=== PATIENT | male | born 1990 | race Caucasian/White ===

== ENCOUNTER 2016-09-29 15:35 | Emergency (ER) | payer BC, OTHER ==
[~2016-09-29] VITALS: Ht 182.9 cm; Wt 67.4 kg
[2016-09-29] MEDS ORDERED: SODIUM CHLORIDE 0.9% 1000ML 2,000 ML IV STA (16:19)
[2016-09-29] MEDS ORDERED: KETOROLAC TROMETHAMINE 15 MG/ML VIAL IM STA (16:19)
[2016-09-29] MEDS ORDERED: KETOROLAC TROMETHAMINE 30 MG/ML VIAL ONE (16:46)
--- NOTE | 2016-09-29 16:46 | EMERGENCY ROOM VISIT NOTE ---
History First contact with patient: 16:03 Chief Complaint: ILLNESS Stated Complaint: RASH, HARPER, BACK,NECK,JOINT LEG PAIN, LIGHTHEADED History of Present Illness The patient is a 26 year old male who presents to the Emergency Room with complaints of 5 days of back and leg pain, joint pain, headaches, fevers and chills. Yesterday patient noticed a round red rash in his right armpit, nontender, non-itchy, no drainage. Patient has been taking DayQuil/NyQuil for his symptoms, had DayQuil one hour prior to arrival today. Patient states he regularly spends time outdoors, denies any recent known tick exposure, but reports this in the past especially during hunting season, noting "one time I took over 35 ticks off of me." He denies chest pain, shortness of breath, cough , nausea/vomiting, abdominal pain, diarrhea, urinary complaints. Review of Systems GENERAL: + fevers, chills, malaise, fatigue. Denies unintentional weight changes. HEENT: + Dizziness. Denies visual problems, hearing loss, tinnitus. Denies difficulty swallowing or oral lesions. PULMONARY: Denies cough, shortness of breath, sputum production or hemoptysis. CARDIOVASCULAR: Denies chest pain, palpitations, dyspnea on exertion, orthopnea or peripheral edema. GASTROINTESTINAL: Denies diarrhea, constipation, nausea, vomiting, or abdominal pain. GENITOURINARY: Denies dysuria, frequency, urgency or nocturia. + Decreased urine output, dark urine. NEUROLOGIC: Denies history of epilepsy, CVA, TIA or chronic headaches. + Headache. MUSCULOSKELETAL: + Bilateral Joint pain. SKIN: + Rash right axilla. PSYCHIATRIC: Denies history of depression or mental illness. ENDOCRINE: Denies history of diabetes, thyroid disorders, abnormal hair growth or sexual dysfunction. Social History Smoking Status: Current Every Day Smoker Current/Historical Medications Scheduled Doxycycline Hyclate (Doxycycline Hyclate), 1 TAB PO BID Allergies Coded Allergies: Cefadroxil (Verified Allergy, Unknown, ., 09/29/16) Physical Exam Vital Signs Date Time Temp Pulse Resp B/P Pulse Ox O2 Delivery O2 Flow Rate FiO2 09/29/16 19:45 93 16 131/80 100 09/29/16 18:45 37.4 92 18 133/76 100 Room Air 09/29/16 17:25 88 09/29/16 17:20 100 Room Air 09/29/16 17:20 80 16 120/72 100 Room Air 09/29/16 15:49 37.6 96 16 121/72 98 Room Air Physical Exam CONSTITUTIONAL: No acute distress. Moderately dehydrated. Alert and oriented X 4 with normal affect. HEENT: Normocephalic, atraumatic. Pupils equal, round and reactive to light, EOMI. No papilledema on funduscopic exam. TMs normal. Pharynx normal. Dry mucous membranes NECK: Supple, full active range of motion without discomfort. No meningismus. RESPIRATORY: Clear to auscultation bilaterally with no wheezing, crackles, rhonchi or stridor. Equal expansion bilaterally. CARDIOVASCULAR: Regular rate and rhythm with no murmurs, rubs or gallops. Normal peripheral perfusion. No edema. GASTROINTESTINAL: Soft, nontender, nondistended. Bowel sounds present in all quadrants. MUSCULOSKELETAL: Full range of motion of all joints without discomfort. No joint swelling noted. INTEGUMENTARY: There is a large round erythematous rash in the right axilla, blanching, nontender to palpation, not hot to touch. NEUROLOGIC: Cranial nerves II-XII grossly intact. No focal neurologic deficits noted. No papilledema noted on ophthalmologic exam. Normal strength, normal sensation, normal cerebellar function, normal gait, normal reflexes. Medical Decision & Procedures ER Provider Diagnostic Interpretation: CHEST 2 VIEWS ROUTINE HISTORY: fevers x 5 days, eval pna COMPARISON: Chest 06/04/2014. FINDINGS: The lungs are clear. Cardiac silhouette is normal in size. No pleural effusions. No pneumothorax. IMPRESSION: No acute process. Laboratory Results 09/29/16 16:47 Red Blood Count 4.45, Mean Corpuscular Volume 88.5, Mean Corpuscular Hemoglobin 30.6, Mean Corpuscular Hemoglobin Concent 34.5, Mean Platelet Volume 9.5, Neutrophils (%) (Auto) 74.0, Lymphocytes (%) (Auto) 16.2, Monocytes (%) (Auto) 9.2, Eosinophils (%) (Auto) 0.2, Basophils (%) (Auto) 0.2, Neutrophils # (Auto) 4.76, Lymphocytes # (Auto) 1.04, Monocytes # (Auto) 0.59, Eosinophils # (Auto) 0.01, Basophils # (Auto) 0.01 09/29/16 16:47 Test 09/29/16 16:47 09/29/16 17:20 White Blood Count 6.42 K/uL (4.8-10.8) Red Blood Count 4.45 M/uL (4.7-6.1) Hemoglobin 13.6 g/dL (14.0-18.0) Hematocrit 39.4 % (42-52) Mean Corpuscular Volume 88.5 fL (80-100) Mean Corpuscular Hemoglobin 30.6 pg (25-34) Mean Corpuscular Hemoglobin Concent 34.5 g/dl (32-36) Platelet Count 197 K/uL (130-400) Mean Platelet Volume 9.5 fL (7.4-10.4) Neutrophils (%) (Auto) 74.0 % Lymphocytes (%) (Auto) 16.2 % Monocytes (%) (Auto) 9.2 % Eosinophils (%) (Auto) 0.2 % Basophils (%) (Auto) 0.2 % Neutrophils # (Auto) 4.76 K/uL (1.4-6.5) Lymphocytes # (Auto) 1.04 K/uL (1.2-3.4) Monocytes # (Auto) 0.59 K/uL (0.11-0.59) Eosinophils # (Auto) 0.01 K/uL (0-0.5) Basophils # (Auto) 0.01 K/uL (0-0.2) RDW Standard Deviation 43.2 fL (36.4-46.3) RDW Coefficient of Variation 13.2 % (11.5-14.5) Immature Granulocyte % (Auto) 0.2 % Immature Granulocyte # (Auto) 0.01 K/uL (0.00-0.02) Anion Gap 7.0 mmol/L (3-11) Est Creatinine Clear Calc Drug Dose 107.7 ml/min Estimated GFR () 120.7 Estimated GFR (Non- 104.1 BUN/Creatinine Ratio 8.5 (10-20) Lactic Acid Level 0.8 mmol/L (0.4-2.0) Calcium Level 8.8 mg/dl (8.5-10.1) Total Bilirubin 0.3 mg/dl (0.2-1) Direct Bilirubin 0.2 mg/dl (0-0.2) Aspartate Amino Transf (AST/SGOT) 171 U/L (15-37) Alanine Aminotransferase (ALT/SGPT) 243 U/L (12-78) Alkaline Phosphatase 146 U/L (45-117) Total Creatine Kinase 126 U/L (39-308) C-Reactive Protein 13.20 mg/dl (0-0.29) Total Protein 7.5 gm/dl (6.4-8.2) Albumin 3.7 gm/dl (3.4-5.0) Lipase 179 U/L (73-393) Lyme Disease IgG Antibody NEG (NEG) Urine Color YELLOW Urine Appearance CLEAR (CLEAR) Urine pH 7.0 (4.5-7.5) Urine Specific [place] 1.009 (1.000-1.030) Urine Protein NEG (NEG) Urine Glucose (UA) NEG (NEG) Urine Ketones 1+ (NEG) Urine Occult Blood NEG (NEG) Urine Nitrite NEG (NEG) Urine Bilirubin NEG (NEG) Urine Urobilinogen NEG (NEG) Urine Leukocyte Esterase NEG (NEG) Urine WBC (Auto) 0 /hpf (0-5) Urine RBC (Auto) 0-4 /hpf (0-4) Urine Hyaline Casts (Auto) 0 /lpf (0-5) Urine Epithelial Cells (Auto) 5-10 /lpf (0-5) Urine Bacteria (Auto) NEG (NEG) Medications Administered Medications (Trade) Dose Ordered Sig/Charles Route Start Time Stop Time Status Last Admin Dose Admin Sodium Chloride (Nss 1000ml) 2,000 ml @ 999 mls/hr Q2H1M STAT IV 09/29/16 16:19 09/29/16 19:18 DC 09/29/16 17:18 999 MLS/HR Ketorolac Tromethamine (Toradol Inj) 30 mg STK-MED ONCE .ROUTE 09/29/16 16:46 09/29/16 16:47 DC 09/29/16 17:17 15 MG Acetaminophen/ Hydrocodone Bitart ([place] 5/325 Tab) 1 tab NOW STAT PO 09/29/16 19:06 09/29/16 19:08 DC 09/29/16 19:19 1 TAB Doxycycline Hyclate (Vibramycin Cap) 100 mg NOW STAT PO 09/29/16 19:11 09/29/16 19:13 DC 09/29/16 19:19 100 MG Medical Decision CC: Patient presenting with complaint of headaches, body aches, joint pain, fevers and chills for 5 days. Interpretation of Labs: No leukocytosis, no anemia, no significant electrolyte abnormalities, normal renal function, diffuse mildly elevated liver enzymes. Positive Lyme. Differential Diagnosis: Includes, but not limited to viral illness, dehydration , electrolyte abnormality, acute Lyme disease, rhabdomyolysis, viral meningitis. Summary: Patient was evaluated at bedside, history of physical exam performed. Patient is alert and oriented, no acute distress. Neurologic exam is normal without focal deficit. No clinical meningismus on exam, I have a low suspicion for meningitis. Patient has erythematous target lesion in the right axilla that appears consistent with Lyme disease. Orders were placed at bedside for labs, urinalysis, chest x-ray, IV fluid bolus to evaluate for dehydration, Lyme disease, other infectious etiology. Patient discussed with Dr. Adames, who agrees with my assessment and plan. Chest x-ray reviewed and is normal, no pneumonia. Labs reviewed, interpretation as above, notable for positive Lyme disease. First dose of doxycycline given in ED. Patient tolerating PO well. Patient reassessed multiple times throughout ED stay, greatly improved after IV fluids and medications. Patient and family updated on all results and plan for discharge, with close follow-up. Patient also given return precautions, he verbalized understanding. Impression Primary Impression: Acute Lyme disease Departure Information Dispostion Home / Self-Care Condition GOOD Prescriptions Doxycycline Hyclate (DOXYCYCLINE HYCLATE) 100 Mg Tab 1 TAB PO BID for 21 Days, #42 TAB Prov: Lani Cano CRNP 09/29/16 Referrals No Doctor, Assigned (PCP) Patient Instructions ED Lyme Disease, [facility] Additional Instructions Take the doxycycline as prescribed for the full 21 days to treat your Lyme disease. You may take Tylenol 1000 mg every 8 hours and ibuprofen 800 mg every 8 hours as needed for headaches and headaches. Drink plenty of fluids to stay hydrated. Follow-up with your primary doctor in the next few days. Please return to the ER for worsening symptoms, including severe worsening headache, persistent vomiting and unable to keep anything down, chest pain, shortness of breath, passing out, persistent fevers greater than 101, chills, or any other concerns.
[2016-09-29 16:48] VITALS: Ht 182.9 cm; Wt 67.4 kg
[2016-09-29 17:14] LABS: BASO % 0.2 %; BASO ABS # 0.01 K/uL (0-0.2); COMPLETE YES; EOS % 0.2 %; HEMATOCRIT 39.4 % (42-52); IG% 0.2 %; LYMPH % 16.2 %; LYMPH ABS # 1.04 K/uL (1.2-3.4); MEAN CELL VOLUME 88.5 fL (80-100); MEAN CORPUSCULAR HEMOGLOBIN 30.6 pg (25-34); MEAN CORPUSCULAR HGB CONC 34.5 g/dl (32-36); MEAN PLATELET VOLUME 9.5 fL (7.4-10.4); MONO % 9.2 %; PLATELET COUNT 197 K/uL (130-400); RED BLOOD COUNT 4.45 M/uL (4.7-6.1); WHITE BLOOD COUNT 6.42 K/uL (4.8-10.8)
[2016-09-29 17:20] VITALS: O2SAT 100
[2016-09-29 17:34] LABS: BUN/CREATININE RATIO 8.5 (10-20); C-REACTIVE PROTEIN 13.2 mg/dl (0-0.29); CALCIUM 8.8 mg/dl (8.5-10.1); POTASSIUM 3.6 mmol/L (3.5-5.1)
[2016-09-29 17:34] LABS: URINE APPEARANCE CLEAR (CLEAR); URINE BILIRUBIN NEG (NEG); URINE COLOR YELLOW; URINE NITRITE NEG (NEG); URINE SPECIFIC GRAVITY 1.009 (1.000-1.030); UROBILINOGEN NEG (NEG)
[2016-09-29 17:37] LABS: MANUAL MICROSCOPIC REQUIRED? NO; REVIEW REQ? YES
--- NOTE | 2016-09-29 18:03 | DIAGNOSTIC IMAGING REPORT ---
CHEST 2 VIEWS ROUTINE HISTORY: fevers x 5 days, eval pna COMPARISON: Chest 06/04/2014. FINDINGS: The lungs are clear. Cardiac silhouette is normal in size. No pleural effusions. No pneumothorax. IMPRESSION: No acute process. Electronically signed by: Malcolm Marcano M.D. 09/29/2016 6:02 PM Dictated Date/Time: 09/29/2016 6:01 PM
[2016-09-29 18:33] LABS: LYME DISEASE AB IGG NEG (NEG)
[2016-09-29 18:45] VITALS: TEMP 37.4
[2016-09-29 18:49] LABS: LYME DISEASE AB IGM POS (NEG)
[2016-09-29] MEDS ORDERED: SODIUM CHLORIDE 0.9% 1000ML 1,000 ML IV STA (19:02)
[2016-09-29] MEDS ORDERED: HYDROCODONE/ACETAMOPHEN 5/325MG TAB PO STA (19:06)
[2016-09-29] MEDS ORDERED: DOXYCYCLINE HYCLATE 100 MG CAP PO STA (19:11)
[2016-09-29] MEDS ORDERED: DOXY1TAB6 PO (19:16)
[2016-09-29 19:45] VITALS: BP 131/80; PULSE 93; O2SAT 100
[2016-10-04 20:33] LABS: 18KDIGG BAND NONREACTIVE (NONREACTIVE); 23KDIGG BAND NONREACTIVE (NONREACTIVE); 23KDIGM BAND REACTIVE (NONREACTIVE); 28KDIGG BAND NONREACTIVE (NONREACTIVE); 30KDIGG BAND NONREACTIVE (NONREACTIVE); 39KDIGG BAND NONREACTIVE (NONREACTIVE); 39KDIGM BAND NONREACTIVE (NONREACTIVE); 41KDIGG BAND REACTIVE (NONREACTIVE); 41KDIGM BAND NONREACTIVE (NONREACTIVE); 45KDIGG BAND NONREACTIVE (NONREACTIVE); 58KDIGG BAND REACTIVE (NONREACTIVE); 66KDIGG BAND NONREACTIVE (NONREACTIVE); 93KDIGG BAND NONREACTIVE (NONREACTIVE)
== END 2016-09-29 19:45 | disposition home or self-care (01) ==
LOC: C.EDB 15:38 → C.EDC 19:45
DX: A69.20 Lyme disease, unspecified (principal); F17.210 Nicotine dependence, cigarettes, uncomplicated; E86.0 Dehydration